=== PATIENT | male | born 1995 | race Caucasian/White ===

== ENCOUNTER 2016-11-24 20:08 | Emergency (ER) | payer SELFPAY ==
[~2016-11-24] VITALS: Ht 185.4 cm; Wt 158.8 kg
[~2016-11-24 20:08] MED LIST: ADDERALL10 MG PO; ADDERALL30 MG PO; AMOXICOT500 MG PO; FLEXERIL10 MG PO; KEFLEX 500MG.500 MG PO; MOTRIN600 MG PO; Meclizine25 MG PO; SEPTRA DS 800 M1 TAB PO; TAMIFLU 75MG CA75 MG PO; TENEX1 MG PO; TRIMOX500 MG PO; TYLENOL W/CODEI1 TA2 PO; VYVANSE70 MG PO; ZITHROMAX Z PA250 MG PO; ZITHROMAX500 MG PO; ZOFRAN ODT4 MG PO
[2016-11-24 20:36] LABS: UTC STREP SCREEN NOT DETECTED (NOTDETECTED)
[2016-11-24] MEDS ORDERED: BROMFED DM COU118 ML PO (20:50)
[2016-11-24] MEDS ORDERED: AMOXICILLIN500 M2 PO (20:50)
--- NOTE | 2016-11-24 20:52 | Urgent Treatment Center Report ---
History of Present Issue Date/Time Seen by Provider 11/24/162033 Visit Reason Pt arrived:Walked Presenting Problem:FLU LIKE SYMPTOMS Location if Accident: Onset of symptoms date/time:/ or onset unknown for:MEDICAL HX UNKNOWN Have you (or family members/close friends) recently traveled outside the [place]? N If Yes, where/when: Have you had exposure to infectious disease within the past month? TB? Other? Specify: Here with parents c/o tactile fever, bodyaches that have improved, cough that is occasionally productive, sore throat that has resolved, rhinorrhea, nasal congestion that started . Was seen at [facility] today, dx allergies, upset because no testing for flu or strep. Rx bromfed dm for nighttime and tessalon perles for during the day. Filled both but hasn't taken them. No known sick contacts. Not sure about flu vaccine. Source patient Exam Limitations no limitations ALLERGIES Coded Allergies: No Known Allergies (01/07/16) Home Medications Reported Medications Amphetamine Salt Combination (Adderall) 30 MG PO DAILY History Medical History General CAD? No Angina: No TN: No Hypertension? No Hyperlipidemia? No CHF? No DVT? No PE? No COPD? No Asthma? Yes Anemia? No GERD? No Gastric ulcers? No GI Bleed? No Hernia? No Thyroid Problems? No Hypothyroidism? No CVA? No Seizures? No Diabetes? No Insulin Dependent: No Insulin Pump: No Home FSBS? No Renal Insuffiency? No UTI? No Stones? No BPH? No GB Disease: No Nephritic Syndrome? No Asplenia? No Hepatitis? No Sickle Cell Disease? No Arthritis? No Migraines? No Cataracts? No Glaucoma? No MRSA? No HIV? No TB? No Anxiety? No Depression? No Cancer? No Immunization HX DT/Tetanus 5-10 YRS Surgical Hx Previous Surgery?Y ROOT CANAL RIGHT KNEE Social History Smoking Hx Smoker: Never Smoker Tobacco: No Alcohol Alcohol: No Review of Systems All Other Systems Reviewed and Negative Constitutional see HPI Eyes denies drainage ENT see HPI. denies: ear pain, ear discharge, throat swelling. Respiratory denies shortness of breath, denies wheezing Cardiovascular denies chest pain Gastrointestinal denies no symptoms reported Skin denies rash Psychiatric/Neurological headache Physical Exam Vital Signs Vital Signs Date Time Temp Pulse Resp B/P Pulse O2 O2 Flow FiO2 Ox Delivery Rate 11/24 2054 99.0 98 16 154/94 98 11/24 2025 99.0 98 16 154/94 98 General Appearance no apparent distress, obese Eye Exam - bilateral eye normal exam Ear, Nose, Throat left Tm dull pink, right TM normal, bilateral EACs normal, nasal congestion w/ clear rhinorrhea, cobblestoning w/ clear PND, no sinus pain Neck non-tender, supple Respiratory Status Yes: non productive cough. No: respiratory distress. Lung Sounds anterior: lungs clear. posterior: lungs clear. bilateral: lungs clear. Cardiovascular regular rate/rhythm, no murmur Neurologic alert Skin normal color, warm/dry Lymphatic no adenopathy (cervical) Medical Decision Making LABS/Meds/Orders Pt receiving controlled substance in ED? No Results/Orders Laboratory Tests 11/24/162030: Influenza Type A Ag NOT DETECTED, Influenza Type B Ag NOT DETECTED, Group A Strep Screen NOT DETECTED Orders Procedure Date/time Status UTC STREP SCREEN 11/24 2030 Complete UTC FLU A,B 11/24 2030 Complete Departure Departure Time of Disposition 2045 Disposition DC Home or Self Care(routine) Clinical Impression Primary Impression: Left otitis media Qualifiers: Otitis media type: unspecified Chronicity: unspecified Qualified Code: H66.92 - Otitis media, unspecified, left ear Secondary Impressions: Cough High blood pressure Qualifiers: Hypertension type: essential hypertension Qualified Code: I10 - Essential (primary) hypertension Condition STABLE Referrals Tre CABAN,Curtis (Family) Call tomorrow and make appt BURKE to discuss high blood pressure. follow up in 2-3 days if no better but immediately for new or worsening symptoms. Patient Instructions DI for Cough -- Adult, DI for Otitis Media (Middle Ear Infection)-Child Additional Instructions Do not take tessalon perles when you have a productive cough. Bromfed DM 4 times a day for cough and drainage. Start antibiotic in the morning for ear infection starting on left. Sleep elevated humidifier/vaporizer Discharge Counseling Counseled pt/family regarding diagnosis, test results, medications/RX, home care, follow up needs Prescriptions Current Visit Scripts Amoxicillin (Amoxicillin 500MG Tab) 500 MG PO TID #30 TAB TID x 10 days D-METHORPHAN HB/P-EPD HCL/BPM (Bromfed Dm Cough Syrup) 10 ML PO QIDP PRN cough #120 ML Ref 1 at 0044
[2016-11-24 20:55] VITALS: BP 154/94
== END 2016-11-24 20:55 | disposition home or self-care (01) ==
LOC: UTC 20:08
PROVIDERS: Nurse Practitioner Family
DX: H66.92 Otitis media, unspecified, left ear (principal); I10 Essential (primary) hypertension

== ENCOUNTER 2017-06-29 14:29 | Emergency (ER) | payer SELFPAY ==
[~2017-06-29] VITALS: Ht 185.4 cm; Wt 156.0 kg
[~2017-06-29 14:29] MED LIST changes: +AMOXICILLIN500 M2 PO; +BACTRIM DS 8001 TA1 PO; +BROMFED DM COU118 ML PO
[2017-06-29 14:47] VITALS: BP 143/98
[2017-06-29] MEDS ORDERED: ZOFRAN4 MG PO (14:49)
--- NOTE | 2017-06-29 14:50 | Urgent Treatment Center Report ---
History of Present Issue Date/Time Seen by Provider 06/29/17 1442 Visit Reason Pt arrived:Walked Presenting Problem:PT C/O VOMITING, WEAKNESS, NAUSEA SINCE THIS AM Location if Accident: Onset of symptoms date/time:/ or onset unknown for:MEDICAL HX UNKNOWN Have you (or family members/close friends) recently traveled outside the [place]? N If Yes, where/when: Have you had exposure to infectious disease within the past month? TB? Other? Specify: Source patient Exam Limitations no limitations Comment 21-year-old male presents for nausea, epigastric pain and vomiting 3 since 3 AM. Patient states his nine-month old daughter just recovered from a stomach virus. Patient denies fever or diarrhea ALLERGIES Coded Allergies: No Known Allergies (01/07/16) Home Medications Reported Medications No Known Home Medications History Medical History General CAD? No Angina: No DE: No Hypertension? No Hyperlipidemia? No CHF? No DVT? No PE? No COPD? No Asthma? Yes Anemia? No GERD? No Gastric ulcers? No GI Bleed? No Hernia? No Thyroid Problems? No Hypothyroidism? No CVA? No Seizures? No Diabetes? No Insulin Dependent: No Insulin Pump: No Home FSBS? No Renal Insuffiency? No UTI? No Stones? No BPH? No GB Disease: No Nephritic Syndrome? No Asplenia? No Hepatitis? No Sickle Cell Disease? No Arthritis? No Migraines? No Cataracts? No Glaucoma? No MRSA? No HIV? No TB? No Anxiety? No Depression? No Cancer? No Immunization HX DT/Tetanus 5-10 YRS Surgical Hx Previous Surgery?Y ROOT CANAL RIGHT KNEE Social History Smoking Hx Smoker: Never Smoker Tobacco: No Alcohol Alcohol: No Review of Systems All Other Systems Reviewed and Negative Gastrointestinal see HPI, abdominal pain, vomiting Physical Exam Vital Signs Vital Signs Date Time Temp Pulse Resp B/P Pulse O2 O2 Flow FiO2 Ox Delivery Rate 06/29 1447 98.6 81 16 143/98 98 06/29 1438 98.6 81 16 143/98 98 - WBC >12,000 or <4,000 or 10% bands? 2 or more SIRS Criteria Met? B/P:143/98 MAP:113 Creatinine >2.0? UA output<0.5ml/kg/hr for 2 hrs? Platelet count >100,000? Lactate >2.0mmol/1? INR >1.2 or PTT > than 60 sec? Evidence of Organ Dysfunction? Provider documented clinical suspician of infection? Sepsis Criteria Count: 0 Sepsis Risk: General Appearance normal appearance, no apparent distress Eye Exam - bilateral eye normal exam, bilateral eye PERRL, bilateral eye EOMI Ear, Nose, Throat hearing grossly normal, normal ENT inspection, normal pharynx Neck normal inspection, full range of motion Respiratory Status Yes: trachea midline, chest symmetrical, non tender chest. No: respiratory distress. Lung Sounds bilateral: normal breath sounds, lungs clear. Cardiovascular normal exam, regular rate/rhythm, no peripheral edema Gastrointestinal normal bowel sounds, normal exam, non tender, soft, no guarding , no rebound, tenderness (epigastric) Back normal inspection, no CVA tenderness, no vertebral tenderness, bowel/ bladder continent Neurologic alert, normal exam, oriented x 3 Medical Decision Making LABS/Meds/Orders Pt receiving controlled substance in ED? No Departure Departure Time of Disposition 1446 Disposition DC Home or Self Care(routine) Clinical Impression Primary Impression: Vomiting Qualifiers: Vomiting type: unspecified Vomiting Intractability: non-intractable Nausea presence: with nausea Qualified Code: R11.2 - Nausea with vomiting, unspecified Condition STABLE Referrals Curtis Toledo MD (Family): Tomorrow-Call Office Patient Instructions DI for Vomiting -- Adult Additional Instructions bran diet, advance as tolerated Increase fluids, rest Follow-up with PCP this week if no improvement If symptoms worsen or do not improve return or be seen in the ER Discharge Counseling Counseled pt/family regarding diagnosis, medications/RX, home care, follow up needs Prescriptions Current Visit Scripts ONDANSETRON HCL (Zofran 4MG Tab) 4 MG PO Q8HP PRN NAUSEA AND VOMITING 3 Days at 6706
--- OUTSIDE RECORDS SUMMARY | 2017-07-04 02:41 | External Medical Summary Rpt | CCD ---
Author Author , MARY ELLEN HYDE Address Unknown Phone mary Care Team Providers Care Cvicu Rn Name Role Phone PETE NAIR MD, Unavailable Unavailable PETE NAIR MD [facility] Unavailable Unavailable [place], [facility] [place] Kirsten Mascorro MD, Unavailable Unavailable Kirsten Brown MD, Unavailable Unavailable Yohan Brown MD [facility] Unavailable Unavailable [id number] # [id number], [facility] [id number] # [id number] [facility] # Unavailable Unavailable [id number], [facility] # [id number] Purpose Continuity of Care Document - 11-22-2009 through 2016 Problems Code Diagnosis DOS Provider Status 842.00 842.00 07-08-2013 [place] SPRAIN OF [facility] WRIST NOS Hospital 314.01 314.01 ATTN 05-24-2013 Vitor DEFICIT W [facility] HYPERACT Hospital 493.90 493.90 05-24-2013 [place] ASTHMA, [facility] UNSPECIFIED Hospital 724.2 724.2 05-24-2013 [facility] 815.00 815.00 FX 03-26-2013 [place] METACARPAL [facility] NOS-CLOSED Hospital E849.8 E849.8 03-23-2013 Vitor ACCIDENT IN [facility] E917.4 E917.4 STAT 03-23-2013 [place] OB W/O SUB [facility] FALL [facility] H81.10 BENIGN PAROXYSMAL VERTIGO, UNSPECIFIED EAR J06.9 ACUTE UPPER RESPIRATORY INFECTION, UNSPECIFIED L03.90 CELLULITIS, UNSPECIFIED M25.569 PAIN IN UNSPECIFIED KNEE R00.2 PALPITATION S R07.9 CHEST PAIN, UNSPECIFIED R55 SYNCOPE AND COLLAPSE S91.209A UNSP OPEN WOUND OF UNSP TOE(S) W DAMAGE TO NAIL, INIT ENCNTR S96.919A STRAIN OF UNSP MSL/TND AT ANK/FT LEVEL, UNSP FOOT, INIT Allergies, Adverse Reactions, Alerts Type Allergy to substance Drug Allergy Adverse Reaction to Substance Substance Reaction Severity NO KNOWN ALLERGIES Unknown Unknown No Known Allergies - Unknown Mild Nka Clinical Alert Notifications Alert Asthma: no influenza vaccine in the last 365 days Medications Na ND Rx Da Fi Fi Am Da Di Ph RX Ph St me C No te ll ll ou ys ag ar # ys at rm s nt no ma ic us Or Da si cy ia de te s n re d AC 51 07 0 No ET 07 -0 AM 90 2- Lo IN 16 20 ng OP 19 13 er HE 9H N Ac W/ ti CO ve DE IN E #3 TA K DE 00 10 10 0 [address] Ac XT 55 -0 -0 .0 L- 20 EP ti RO 50 7- 7- 00 MA 64 HE ve AM 97 20 20 RT 3 NS P- 20 11 11 AM 2 PH DO PH AR N ET MA R AM CY IN # 10 10 05 MG 91 TA B VY 59 10 10 0 [address] Ac VA 41 -0 -0 .0 L- 20 EP ti NS 70 4- 4- 00 MA 63 HE ve E 10 20 20 RT 1 NS 70 71 11 11 0 PH DO MG AR N MA R CA CY PS # UL E 10 05 91 VY 59 08 09 0 [address] Ac VA 41 -3 -0 .0 L- 20 EP ti NS 70 1- 2- 00 MA 46 HE ve E 10 20 20 RT 9 NS 70 71 11 11 0 PH DO MG AR N MA R CA CY PS # UL E 10 05 91 AZ 60 08 08 0 4. 4 WA 71 CO Ac IT 50 -1 -1 00 L- 31 OP ti HR 52 6- 7- 0 MA 21 ER ve OM 58 20 20 RT 6 YC 10 11 11 RADHA IN 3 PH HN AR G 25 MA 0 CY MG # TA 10 BL 05 ET 91 VY 59 07 07 0 [address] Ac VA 41 -0 -2 .0 L- 20 EP ti NS 70 4- 2- 00 MA 26 HE ve E 10 20 20 RT 4 NS 70 71 11 11 0 PH DO MG AR N MA R CA CY PS # UL E 10 05 91 VY 59 06 06 0 [address] Ac VA 41 -0 -0 .0 L- 20 EP ti NS 70 4- 5- 00 MA 03 HE ve E 10 20 20 RT 8 NS 70 71 11 11 0 PH DO MG AR N MA R CA CY PS # UL E 10 DE 00 06 06 0 [address] Ac XT 55 -0 -0 .0 L- 20 EP ti RO 50 4- 5- 00 MA 03 HE ve AM 97 20 20 RT 9 NS P- 20 11 11 AM 2 PH DO PH AR N ET MA R AM CY IN # 10 10 05 MG 91 TA B VY 59 05 05 0 [address] Ac VA 41 -0 -0 .0 L- 19 EP ti NS 70 2- 2- 00 MA 86 HE ve E 10 20 20 RT 3 NS 70 71 11 11 0 PH DO MG AR N MA R CA CY PS # UL E 10 05 91 IB 68 04 04 0 [address] Ac UP 64 -2 -2 .0 L- 16 EP ti RO 50 2- 2- 00 MA 34 HE ve FE 22 20 20 RT 0 NS N 15 11 11 60 9 PH DO 0 AR N MG MA R CY TA # BL ET 10 VY 59 03 03 0 [address] Ac VA 41 -2 -2 .0 L- 19 EP ti NS 70 9- 9- 00 MA 67 HE ve E 10 20 20 RT 9 NS 70 71 11 11 0 PH DO MG AR N MA R CA CY PS # UL E 10 DE 00 03 03 0 [address] Ac XT 55 -2 -2 .0 L- 19 EP ti RO 50 8- 8- 00 MA 66 HE ve AM 97 20 20 RT 2 NS P- 20 11 11 AM 2 PH DO PH AR N ET MA R AM CY IN # 10 10 05 MG 91 TA B VY 59 01 02 0 [address] Ac VA 41 -2 -0 .0 L- 19 EP ti NS 70 1- 9- 00 MA 31 HE ve E 10 20 20 RT 7 NS 70 71 11 11 0 PH DO MG AR N MA R CA CY PS # UL E 10 05 91 RA 53 02 02 0 [address] Ac NI 74 -0 -0 .0 L- 04 EP ti TI 60 1- 1- 00 MA 96 HE ve DI 25 20 20 RT 1 NS NE 36 11 11 0 PH DO 15 AR N 0 MA R MG CY # TA BL 10 ET 05 91 65 01 01 5 [address] Ac AN 16 -2 -3 .0 L- 04 EP ti FA 20 5- 0- 00 MA 65 HE ve CI 71 20 20 RT 1 NS NE 11 11 11 1 0 PH DO AR N MG MA R CY TA # BL ET 10 05 91 DE 00 01 01 0 [address] Ac XT 55 -2 -2 .0 L- 19 EP ti RO 50 1- 1- 00 MA 31 HE ve AM 97 20 20 RT 8 NS P- 20 11 11 AM 2 PH DO PH AR N ET MA R AM CY IN # 10 10 05 MG 91 TA B VY 59 01 01 0 [address] Ac VA 41 -1 -1 .0 L- 19 EP ti NS 70 1- 2- 00 MA 26 HE ve E 10 20 20 RT 4 NS 70 71 11 11 0 PH DO MG AR N MA R CA CY PS # UL E 10 05 91 VY 59 12 12 0 [address] Ac VA 41 -0 -[address] 31 EP ti NS 70 8- 8- 00 SI 02 HE ve E 10 20 20 DE NS 70 71 10 10 0 PH DO MG AR N MA R CA CY PS UL OF E CY NT HI AN A DE 64 12 12 [address] Ac XT 72 -0 -[address] 31 EP ti RO 00 8- 8- 00 SI 03 HE ve AM 13 20 20 DE NS P- 21 10 10 AM 0 PH DO PH AR N ET MA R AM CY IN OF 10 CY MG NT HI TA AN B A DE 00 11 11 0 [address] Ac XT 55 -0 -0 .0 L- 18 EP ti RO 50 8- 8- 00 MA 93 HE ve AM 97 20 20 RT 8 NS P- 20 10 10 AM 2 PH DO PH AR N ET MA R AM CY IN # 10 10 05 MG 91 TA B VY 59 11 11 0 [address] Ac VA 41 -0 -0 .0 L- 18 EP ti NS 70 8- 8- 00 MA 93 HE ve E 10 20 20 RT 9 NS 70 71 10 10 0 PH DO MG AR N MA R CA CY PS # UL E 10 05 91 65 11 11 5 [address] Ac AN 16 -0 -0 .0 L- 93 EP ti FA 20 8- 8- 00 MA 45 HE ve CI 71 20 20 RT 5 NS NE 11 10 10 1 0 PH DO AR N MG MA R CY TA # BL ET 10 05 91 DE 00 10 10 0 15 30 WA 22 No Ac XT 55 -0 -0 .0 L- 18 t ti RO 50 7- 8- 00 MA 77 Av ve AM 97 20 20 RT 6 ai P- 20 10 10 la AM 2 PH bl PH AR e ET MA AM CY IN # 10 10 05 MG 91 TA B VY 59 10 10 0 30 30 WA 22 No Ac VA 41 -0 -0 .0 L- 18 t ti NS 70 7- 7- 00 MA 77 Av ve E 10 20 20 RT 5 ai 70 71 10 10 la 0 PH bl MG AR e MA CA CY PS # UL E 10 05 91 65 10 10 1 30 30 WA 70 No Ac AN 16 -0 -0 .0 L- 89 t ti FA 20 7- 7- 00 MA 45 Av ve CI 71 20 20 RT 0 ai NE 11 10 10 la 1 0 PH bl AR e MG MA CY TA # BL ET 10 05 91 VY 59 09 09 30 30 RI 84 PR Ac VA 41 -0 -0 .0 TE 88 LL ti NS 70 7- 7- 00 67 ER ve E 10 20 20 AI 70 71 10 10 D CA 0 PH RO MG AR L MA J CA CY PS UL 03 E 93 8 # 03 93 65 09 09 0 30 30 WA 70 PR Ac AN 16 -0 -0 .0 L- 85 LL ti FA 20 7- 7- 00 MA 22 ER ve CI 71 20 20 RT 7 NE 11 10 10 CA 1 0 PH RO AR L MG MA J CY TA # BL ET 10 05 91 VY 59 07 08 0 30 30 WA 22 YO Ac VA 41 -0 -0 .0 L- 18 UN ti NS 70 8- 6- 00 MA 25 G ve E 10 20 20 RT 2 RO 70 71 10 10 SL 0 PH YN MG AR MA CA CY PS # UL E 10 05 91 DE 00 07 07 0 30 30 WA 22 YO Ac XT 55 -0 -0 .0 L- 18 UN ti RO 50 8- 8- 00 MA 25 G ve AM 97 20 20 RT 1 RO P- 20 10 10 SL AM 2 PH YN PH AR ET MA AM CY IN # 10 10 05 MG 91 TA B VY 59 07 07 0 30 30 WA 22 YO Ac VA 41 -0 -0 .0 L- 18 UN ti NS 70 8- 8- 00 MA 25 G ve E 10 20 20 RT 3 RO 70 71 10 10 SL 0 PH YN MG AR MA CA CY PS # UL E 10 05 91 65 07 07 1 30 30 WA 70 YO Ac AN 16 -0 -0 .0 L- 77 UN ti FA 20 8- 8- 00 MA 75 G ve CI 71 20 20 RT 9 RO NE 11 10 10 SL 1 0 PH YN AR MG MA CY TA # BL ET 10 05 91 IB 68 06 06 0 15 5 WA 70 GA Ac UP 64 -2 -2 .0 L- 75 IN ti RO 50 1- 2- 00 MA 67 EY ve FE 22 20 20 RT 5 N 15 10 10 PR 60 9 PH CH 0 AR AE MG MA L CY S TA # BL ET 10 05 91 VY 59 06 06 30 30 RI 83 No Ac VA 41 -1 -1 .0 TE 76 t ti NS 70 0- 1- 00 17 Av ve E 10 20 20 AI ai 70 71 10 10 D la 0 PH bl MG AR e MA CA CY PS UL 03 E 93 8 # 03 93 VY 59 04 05 0 30 30 WA 22 No Ac VA 41 -1 -1 .0 L- 17 t ti NS 70 5- 0- 00 MA 88 Av ve E 10 20 20 RT 9 ai 70 71 10 10 la 0 PH bl MG AR e MA CA CY PS # UL E 10 05 91 AZ 00 05 05 0 6[address] Ac IT 78 -0 -0 00 L- 69 EP ti HR 11 7- 7- 0 MA 72 HE ve OM 49 20 20 RT 8 NS YC 66 10 10 IN 8 PH DO AR N 25 MA R 0 CY MG # TA 10 BL 05 ET 91 65 04 05 1 30 30 WA 70 No Ac AN 16 -1 -0 .0 L- 69 t ti FA 20 5- 6- 00 MA 63 Av ve CI 71 20 20 RT 1 ai NE 11 10 10 la 1 0 PH bl AR e MG MA CY TA # BL ET 10 05 91 AM 00 04 04 0 [address] Ac OX 78 -3 -3 .0 L- 68 EP ti IC 12 0- 0- 00 MA 78 HE ve IL 61 20 20 RT 8 NS LI 30 10 10 N 5 PH DO 50 AR N 0 MA R MG CY # CA PS 10 UL 05 E 91 60 04 04 0 [address] Ac 25 -3 -3 0. L- 68 EP ti 80 0- 0- 00 MA 80 HE ve 23 20 20 0 RT 1 NS 91 10 10 6 PH DO AR N MA R CY # 10 05 91 MU 63 04 04 0 [address] Ac CI 82 -3 -3 .0 L- 15 EP ti NE 40 0- 0- 00 MA 92 HE ve X 00 20 20 RT 5 NS ER 83 10 10 4 PH DO 60 AR N 0 MA R MG CY # TA BL 10 ET 05 91 VY 59 03 04 30 30 RI 82 No Ac VA 41 -0 -0 .0 TE 88 t ti NS 70 4- 7- 00 88 Av ve E 10 20 20 AI ai 70 71 10 10 D la 0 PH bl MG AR e MA CA CY PS UL 03 E 93 8 # 03 93 AM 00 03 03 0 15 5 EA 16 GA Ac OX 78 -1 -[address] 75 IN ti IC 12 2- 2- 00 SI 52 EY ve IL 61 20 20 DE LI 30 10 10 PR N 5 PH CH 50 AR AE 0 MA L MG CY S CA OF PS UL CY E NT HI AN A VY 59 03 03 0 30 30 WA 22 No Ac VA 41 -0 -0 .0 L- 17 t ti NS 70 4- 4- 00 MA 56 Av ve E 10 20 20 RT 9 ai 70 71 10 10 la 0 PH bl MG AR e MA CA CY PS # UL E 10 05 91 65 03 03 1 30 30 WA 70 No Ac AN 16 -0 -0 .0 L- 61 t ti FA 20 4- 4- 00 MA 07 Av ve CI 71 20 20 RT 1 ai NE 11 10 10 la 1 0 PH bl AR e MG MA CY TA # BL ET 10 05 91 Vital Signs 07-08-2013 19:26 Name Value Interpretat Reference Comment ion Range Body 98 [degF] Temperature BP 70 mm[Hg] Diastolic BP Systolic 122 mm[Hg] Heart 82 /min Rate/Pulse O2% 98 % Respiratory 18 /min Rate 07-08-2013 19:24 Name Value Interpretat Reference Comment ion Range BP 70 mm[Hg] Diastolic BP Systolic 122 mm[Hg] Heart 82 /min Rate/Pulse O2% 98 % Respiratory 18 /min Rate 05-24-2013 13:16 Name Value Interpretat Reference Comment ion Range Body 98.3 [degF] Temperature BP 77 mm[Hg] Diastolic BP Systolic 124 mm[Hg] Heart 82 /min Rate/Pulse O2% 100 % Respiratory 18 /min Rate 05-24-2013 11:56 Name Value Interpretat Reference Comment ion Range BP 78 mm[Hg] Diastolic BP Systolic 138 mm[Hg] Heart 74 /min Rate/Pulse O2% 98 % Respiratory 20 /min Rate 03-28-2013 18:33 Name Value Interpretat Reference Comment ion Range BP 80 mm[Hg] Diastolic BP Systolic 138 mm[Hg] Heart 76 /min Rate/Pulse O2% 98 % Respiratory 17 /min Rate 03-26-2013 16:04 Name Value Interpretat Reference Comment ion Range Body 98.3 [degF] Temperature BP 85 mm[Hg] Diastolic BP Systolic 135 mm[Hg] Heart 85 /min Rate/Pulse O2% 99 % Respiratory 20 /min Rate 03-26-2013 15:49 Name Value Interpretat Reference Comment ion Range BP 85 mm[Hg] Diastolic BP Systolic 135 mm[Hg] Heart 85 /min Rate/Pulse O2% 99 % Respiratory 20 /min Rate 03-23-2013 00:09 Name Value Interpretat Reference Comment ion Range BP 82 mm[Hg] Diastolic BP Systolic 120 mm[Hg] Heart 65 /min Rate/Pulse O2% 98 % Respiratory 20 /min Rate 03-23-2013 00:04 Name Value Interpretat Reference Comment ion Range BP 82 mm[Hg] Diastolic BP Systolic 120 mm[Hg] Heart 107 /min Rate/Pulse O2% 93 % Respiratory 20 /min Rate Results Labs Lab Lab Date Result Refere Interp Status Commen Order Detail nces retati t Range on URINALYSIS/COMPLETE (05-24-2013 13:00) URINE YELLOW YELLOW complet COLOR 013 ed 13:00 URINE CLEAR CLEAR complet APPEARA 013 ed NCE 13:00 URINE NEGATIV NEG complet GLUCOSE 013 E ed - 13:00 DIPSTIC K URINE NEGATIV NEG complet BILIRUB 013 E ed IN - 13:00 DIPSTIC K URINE NEGATIV NEG complet KETONE 013 E mg/dL ed 13:00 URINE 1.020 1.005-1 complet SPECIFI 013 UNK .030 ed C 13:00 GRAVITY URINE NEGATIV NEG complet BLOOD 013 E ed 13:00 URINE 7.0 UNK 5.0-8.5 complet PH 013 ed 13:00 URINE NEGATIV NEG complet PROTEIN 013 E mg/dL ed - 13:00 DIPSTIC K URINE 0.2 NEG complet UROBILI 013 E.U./dL ed NOGEN - 13:00 DIPSTIC K URINE NEGATIV NEG complet NITRATE 013 E ed - 13:00 DIPSTIC K URINE NEGATIV NEG complet LEUK 013 E ed ESTERAS 13:00 E URINE 3-5 0 complet RBC 013 rbc/hpf ed 13:00 URINE TRACE O complet BACTERI 013 ed A 13:00 URINE 1+ NONE complet MUCUS 013 ed 13:00 Procedures Procedure DOS Code Location Performer Comment APPLICATI 93.54 Yohan Marques ON OF Stephanie CABAN SPLINT Encounters Encounter Start End Date Code Location Performer Type Date Emergency YARITZA NAIR MD (ER) 3 18:50 3 19:26 [facility] Emergency YARITZA NAIR MD (ER) 3 11:08 3 13:20 [facility] Emergency YARITZA Escobar MD (ER) 3 18:29 3 18:34 [facility] Emergency YARITZA Mascorro MD (ER) 3 15:30 3 16:06 [facility] Emergency YARITZA Brown MD (ER) 3 23:17 3 00:13 [facility]
--- OUTSIDE RECORDS SUMMARY | 2017-07-04 02:41 | External Medical Summary Rpt | CCD ---
Author Author , MARY ELLEN HYDE Address Unknown Phone mary Care Team Providers Care Display Decorator Name Role Phone PETE NAIR MD, Unavailable Unavailable PETE NAIR MD [facility] Unavailable Unavailable [place], [facility] [place] Kirsten Mascorro MD, Unavailable Unavailable Kirsten Brown MD, Unavailable Unavailable Yohan Brown MD [facility] Unavailable Unavailable [id number] # [id number], [facility] [id number] # [id number] [facility] # Unavailable Unavailable [id number], [facility] # [id number] Purpose Continuity of Care Document - 11-22-2009 through 2016 Problems Code Diagnosis DOS Provider Status 842.00 842.00 07-08-2013 [place] SPRAIN OF [facility] WRIST NOS Hospital 314.01 314.01 ATTN 05-24-2013 [place] DEFICIT W [facility] HYPERACT Hospital 493.90 493.90 05-24-2013 [place] ASTHMA, [facility] UNSPECIFIED Hospital 724.2 724.2 05-24-2013 [facility] 815.00 815.00 FX 03-26-2013 [place] METACARPAL [facility] NOS-CLOSED Hospital E849.8 E849.8 03-23-2013 [place] ACCIDENT IN [facility] E917.4 E917.4 STAT 03-23-2013 [place] OB W/O SUB [facility] FALL [facility] H81.10 BENIGN PAROXYSMAL VERTIGO, UNSPECIFIED [...] VY 59 07 07 [address] Ac VA 41 -0 -2 .0 L- 20 EP ti NS 70 4- 2- 00 MA 26 HE ve E 10 20 20 RT 4 NS 70 71 11 11 0 PH DO MG AR N MA R CA CY PS # UL E 10 05 91 VY 59 06 06 0 [address] Ac VA 41 -0 -0 [...] 59 09 09 30 30 RI 84 NC Ac VA 41 -0 -0 .0 TE 88 LL ti NS 70 7- 7- 00 67 ER ve E 10 20 20 AI 70 71 10 10 D CA 0 PH RO MG AR L MA J CA CY PS UL 03 E 93 8 # 03 93 65 09 09 0 30 30 WA 70 NC Ac AN 16 -0 -0 .0 L- [...] 20 RT 5 N 15 10 10 NC 60 9 PH CH 0 AR AE [...] 20 20 DE LI 30 10 10 NC N 5 PH CH 50 AR AE [...] NAIR MD (ER) 3 18:50 3 19:26 [facility] Emergency YARITZA NAIR MD (ER) 3 11:08 3 13:20 [facility] Emergency YARITZA Escobar MD (ER) 3 18:29 3 18:34 [facility] Emergency YARITZA Mascorro MD (ER) 3 15:30 3 16:06 [facility] Emergency YARITZA Brown MD (ER) 3 23:17 3 00:13 [facility]
--- OUTSIDE RECORDS SUMMARY | 2017-07-04 02:42 | External Medical Summary Rpt | CCD ---
Demographics Preferred Language Gabonese Marital Status Unknown Yazdanism Affiliation Unknown Race Unknown Ethnic Group Unknown Author Author , MARY ELLEN HYDE Address Unknown Phone [email or web address] Care Team Providers Care Sales Representative Leather Goods Name Role Phone [facility] Unavailable Unavailable MARIA LUZ, [facility] [place] [facility] Unavailable Unavailable [id number] # [id number], [facility] [id number] # 0393 [facility] # Unavailable Unavailable [id number], [facility] # [id number] Purpose Continuity of Care Document - 11-22-2009 through 2016 Medications Na ND Rx Da Fi Fi Am Da Di Ph RX Ph St me C No te ll ll ou ys ag ar # ys at rm s nt no ma ic us Or Da si cy ia de te s n re d DE 00 10 10 0 30 30 [...] 07 07 0 [address] Ac VA 41 -0 -2 .0 L- 20 EP ti NS 70 4- 2- 00 MA 26 HE ve E 10 20 20 RT 4 NS 70 71 11 11 0 PH DO MG AR N MA R CA CY PS # UL E 10 05 91 VY 59 06 06 0 [address] Ac VA 41 -0 -0 .0 L- 20 EP ti NS 70 4- 5- 00 MA 03 HE ve E 10 20 20 RT 8 NS 70 71 11 11 0 PH DO MG AR N MA R CA CY PS # UL E 10 05 DE 00 06 06 0 30 30 [...] BL ET 10 05 91 VY 59 03 03 0 [address] Ac VA 41 -2 -2 .0 L- 19 EP ti NS 70 9- 9- 00 MA 67 HE ve E 10 20 20 RT 9 NS 70 71 11 11 0 PH DO MG AR N MA R CA CY PS # UL E 10 05 DE 00 03 03 0 30 30 [...] CY # TA BL 10 ET 05 65 01 01 5 [address] Ac AN 16 -2 -3 .0 L- 04 EP ti FA 20 5- 0- 00 MA 65 HE ve CI 71 20 20 RT 1 NS NE 11 11 11 1 0 PH DO AR N MG MA R CY TA # BL ET 10 DE 00 01 01 0 30 30 [...] CA CY PS # UL E 10 VY 59 12 12 0 30 30 [...] MG NT HI TA AN B A 65 11 11 5 [address] Ac AN 16 -0 -0 .0 L- 93 EP ti FA 20 8- 8- 00 MA 45 HE ve CI 71 20 20 RT 5 NS NE 11 10 10 1 0 PH DO AR N MG MA R CY TA # BL ET 10 DE 00 11 11 0 30 30 [...] UL E 10 05 91 DE 00 10 10 [...] 59 09 09 30 30 RI 84 [place] Ac VA 41 -0 -0 .0 TE 88 LL ti NS 70 7- 7- 00 67 ER ve E 10 20 20 AI 70 71 10 10 D CA 0 PH RO MG AR L MA J CA CY PS UL 03 E 93 8 # 03 93 65 09 09 0 30 30 WA 70 [place] Ac AN 16 -0 -0 .0 L- [...] 20 RT 5 N 15 10 10 [place] 60 9 PH CH 0 AR AE [...] 20 20 DE LI 30 10 10 [place] N 5 PH CH 50 AR AE [...]
--- OUTSIDE RECORDS SUMMARY | 2017-07-04 02:42 | External Medical Summary Rpt | CCD ---
Demographics Preferred Language Cambodian Marital Status Unknown Restorationism Affiliation Unknown Race Unknown Ethnic Group Unknown Author Author , MARY ELLEN HYDE Address Unknown Phone [email or web address] Care Team Providers Care Scroll Shear Operator Name Role Phone [facility] Unavailable Unavailable MARIA LUZ, [facility] [place] [facility] Unavailable Unavailable [id number] # [phone], [facility] [id number] # 0393 [facility] # Unavailable Unavailable [id number], [facility] # [id number] Purpose Continuity of Care Document - 11-22-2009 [...] 59 09 09 30 30 RI 84 [place] Ac VA 41 -0 -0 .0 TE 88 LL ti NS 70 7- 7- 00 67 ER ve E 10 20 20 AI 70 71 10 10 D CA 0 PH RO MG AR L MA J CA CY PS UL 03 E 93 8 # 03 93 65 09 09 0 30 30 WA 70 [place] Ac AN 16 -0 -0 .0 L- [...] 20 RT 5 N 15 10 10 [place] 60 9 PH CH 0 AR AE [...] 20 20 DE LI 30 10 10 [place] N 5 PH CH 50 AR AE [...]
--- OUTSIDE RECORDS SUMMARY | 2017-07-04 02:43 | External Medical Summary Rpt | CCD ---
Author Author , MARY ELLEN HYDE Address Unknown Phone [email or web address] Immunization Name Date Rout CVX Reac Dose Comm Prov Is Faci e tion ent ider Refu lity Give sed n DTaP 11-1 107 999 Hist H149 No H149 , UF 6-19 oric 99 al Info rmat ion - Sour ce Unsp ecif ied MMR 11-1 3 999 Hist H149 No H149 6-19 oric 99 al Info rmat ion - Sour ce Unsp ecif ied Corey 11-1 2 999 Hist H149 No H149 o-OP 6-19 oric V 99 al Info rmat ion - Sour ce Unsp ecif ied DTP- 07-1 22 999 Hist H149 No H149 Hib 8-19 oric 97 al Info rmat ion - Sour ce Unsp ecif ied MMR 07-1 3 999 Hist H149 No H149 8-19 oric 97 al Info rmat ion - Sour ce Unsp ecif ied
--- OUTSIDE RECORDS SUMMARY | 2017-07-04 02:43 | External Medical Summary Rpt ---
Author Author MARY ELLEN Zuñiga, MARY ELLEN Production Organization [facility]ARY [facility]LL[facility] [employer] Address Unknown Phone Unavailable Results Natriutietic peptide B [Mass/volume] in Serum or Plasma Observa Value Referen Units Interpr Notes Date tion ce etation Range Natriutie 0 - 100 pg/mL Normal No Sep 5 tic informati 2016 4:15 peptide B on in PM source [Mass/vol data ume] in Serum or Plasma Fibrin D-dimer FEU [Mass/volume] in Platelet poor plasma Observa Value Referen Units Interpr Notes Date tion ce etation Range Fibrin 0 - 400 ng/mL Normal The May 26 D-dimer D-Dimer 2016 4:15 FEU values PM [Mass/vol are ume] in presented Platelet in units poor of plasma mass(ng/m L) ofD-Dimer units(DDU ).This test has been FDA approved as an aid in the assessmen tand evaluatio n of suspected DIC, and thromboem bolic eventsinc luding PE and DVT. However, it does not have approvalf or cut-off values for the exclusion of these condition s. Amylase [Enzymatic activity/volume] in Serum or Plasma Observa Value Referen Units Interpr Notes Date tion ce etation Range Amylase 25 - 115 U/L Normal No Sep 5 [Enzymati informati 2016 4:15 c on in PM activity/ source volume] data in Serum or Plasma Lipase [Enzymatic activity/volume] in Serum or Plasma Observa Value Referen Units Interpr Notes Date tion ce etation Range Lipase 73 - 393 U/L Normal No Sep 5 [Enzymati informati 2016 4:15 c on in PM activity/ source volume] data in Serum or Plasma CBC W Auto Differential panel in Blood Observa Value Referen Units Interpr Notes Date tion ce etation Range Basophils 0 - 0.2 K/MM3 Normal No Sep 5 informati 2016 4:15 [#/volume on in PM ] in source Blood by data Automated count Basophils 0.1 - 2.0 % Normal No Sep 5 /100 informati 2016 4:15 leukocyte on in PM s in source Blood by data Automated count Eosinophi 0.0 - 0.4 K/mm3 Normal No Sep 5 ls informati 2016 4:15 [#/volume on in PM ] in source Blood by data Automated count Eosinophi 0.1 - % Normal No Sep 5 ls/100 12.0 informati 2016 4:15 leukocyte on in PM s in source Blood by data Automated count Granulocy 1.3 - 8.0 K/mm3 Normal No Sep 5 mya informati 2016 4:15 [#/volume on in PM ] in source Blood by data Automated count Granulocy 37.0 - % Normal No Sep 5 mya/100 80.0 informati 2016 4:15 leukocyte on in PM s in source Blood by data Automated count Hematocri 42.0 - % Normal No Sep 5 t [Volume 52.0 informati 2016 4:15 on in PM Fraction] source of Blood data Hemoglobi 14.1 - g/dL Normal No Sep 5 n 18.0 informati 2016 4:15 [Mass/vol on in PM ume] in source Blood data Lymphocyt 0.7 - 4.5 K/mm3 Normal No Sep 5 es informati 2016 4:15 [#/volume on in PM ] in source Unspecifi data ed specimen by Automated count Lymphocyt 10 - 50 % Normal No Sep 5 es informati 2016 4:15 [#/volume on in PM ] in source Unspecifi data ed specimen by Automated count Erythrocy 27 - 31.2 pg Normal No Sep 5 te mean informati 2016 4:15 corpuscul on in PM ar source hemoglobi data n [Entitic mass] Erythrocy 31.8 - g/dl Normal No Sep 5 te mean 35.4 informati 2016 4:15 corpuscul on in PM ar source hemoglobi data n concentra tion [Mass/vol ume] by Automated count Erythrocy 82.2 - fl Normal No Sep 5 te mean 97.8 informati 2016 4:15 corpuscul on in PM ar volume source [Entitic data volume] by Automated count Monocytes 0.1 - 1.0 K/mm3 Normal No Sep 5 informati 2016 4:15 [#/volume on in PM ] in source Blood by data Automated count Monocytes 1.7 - 9.3 % Normal No Sep 5 /100 informati 2016 4:15 leukocyte on in PM s in source Blood by data Automated count Platelet 7.4 - fl Normal No Sep 5 mean 10.4 informati 2016 4:15 volume on in PM [Entitic source volume] data in Blood by Automated count Platelets 142 - 424 K/mm3 Normal No Sep 5 inform2016 4:15 [#/volume on in PM ] in source Blood data Erythrocy 4.6 - 6.2 M/mm3 Normal No Sep 5 mya informati 2016 4:15 [#/volume on in PM ] in source Amniotic data fluid Erythrocy 11.5 - % Normal No Sep 5 te 17.5 informati 2016 4:15 distribut on in PM ion width source [Entitic data volume] by Automated count Leukocyte 4.8 - K/MM3 High No Sep 5 s 10.8 informati 2016 4:15 [#/volume on in PM ] in source Blood data CBC W Auto Differential panel in Blood Observa Value Referen Units Interpr Notes Date tion ce etation Range Basophils 0 - 0.2 K/MM3 Normal No May 20 informati 2016 1:18 [#/volume on in PM ] in source Blood by data Automated count Basophils 0.1 - 2.0 % Normal No May 20 /100 informati 2016 1:18 leukocyte on in PM s in source Blood by data Automated count Eosinophi 0.0 - 0.4 K/mm3 Normal No May 20 ls informati 2016 1:18 [#/volume on in PM ] in source Blood by data Automated count Eosinophi 0.1 - % Normal No May 20 ls/100 12.0 informati 2016 1:18 leukocyte on in PM s in source Blood by data Automated count Granulocy 1.3 - 8.0 K/mm3 Normal No May 20 mya informati 2016 1:18 [#/volume on in PM ] in source Blood by data Automated count Granulocy 37.0 - % Normal No May 20 mya/100 80.0 informati 2016 1:18 leukocyte on in PM s in source Blood by data Automated count Hematocri 42.0 - % Normal No May 20 t [Volume 52.0 informati 2016 1:18 on in PM Fraction] source of Blood data Hemoglobi 14.1 - g/dL Normal No May 20 n 18.0 informati 2016 1:18 [Mass/vol on in PM ume] in source Blood data Lymphocyt 0.7 - 4.5 K/mm3 Normal No May 20 es informati 2017 1:18 [#/volume on in PM ] in source Unspecifi data ed specimen by Automated count Lymphocyt 10 - 50 % Normal No May 20 es informati 2016 1:18 [#/volume on in PM ] in source Unspecifi data ed specimen by Automated count Erythrocy 27 - 31.2 pg Normal No May 20 te mean informati 2016 1:18 corpuscul on in PM ar source hemoglobi data n [Entitic mass] Erythrocy 31.8 - g/dl Normal No May 20 te mean 35.4 informati 2017 1:18 corpuscul on in PM ar source hemoglobi data n concentra tion [Mass/vol ume] by Automated count Erythrocy 82.2 - fl Normal No May 20 te mean 97.8 informati 2016 1:18 corpuscul on in PM ar volume source [Entitic data volume] by Automated count Monocytes 0.1 - 1.0 K/mm3 Normal No May 20 informati 2017 1:18 [#/volume on in PM ] in source Blood by data Automated count Monocytes 1.7 - 9.3 % Normal No May 20 /100 informati 2017 1:18 leukocyte on in PM s in source Blood by data Automated count Platelet 7.4 - fl Normal No May 20 mean 10.4 informati 2017 1:18 volume on in PM [Entitic source volume] data in Blood by Automated count Platelets 142 - 424 K/mm3 Normal No May 20 informati 2016 1:18 [#/volume on in PM ] in source Blood data Erythrocy 4.6 - 6.2 M/mm3 Normal No May 20 mya informati 2017 1:18 [#/volume on in PM ] in source Amniotic data fluid Erythrocy 11.5 - % Normal No May 20 te 17.5 informati 2016 1:18 distribut on in PM ion width source [Entitic data volume] by Automated count Leukocyte 4.8 - K/MM3 Normal No May 20 s 10.8 informati 2016 1:18 [#/volume on in PM ] in source Blood data
--- OUTSIDE RECORDS SUMMARY | 2017-07-04 02:43 | External Medical Summary Rpt | CCD ---
Author Author , MARY ELLEN HYDE Address Unknown Phone [email or web address] Immunization Name Date Rout CVX Reac Dose [...]
== END 2017-06-29 14:50 | disposition home or self-care (01) ==
LOC: UTC 14:29
DX: R11.2 Nausea with vomiting, unspecified (principal)

== ENCOUNTER 2017-08-23 14:13 | Emergency (ER) | payer MEDICAID ==
[~2017-08-23] VITALS: Ht 185.4 cm; Wt 156.5 kg
[~2017-08-23 14:13] MED LIST changes: +ZOFRAN4 MG PO
[2017-08-23] MEDS ORDERED: MUCINEX1200 MG PO (14:53)
[2017-08-23] MEDS ORDERED: CLARITIN 10MG T10 MG PO (14:53)
[2017-08-23] MEDS ORDERED: BROMFED DM COU118 ML PO (14:53)
--- NOTE | 2017-08-23 14:53 | Urgent Treatment Center Report ---
History of Present Issue Date/Time Seen by Provider 08/23/17 9283 Visit Reason Pt arrived:Walked Presenting Problem:CONGESTION BEGAN THIS AM Location if Accident: Onset of symptoms date/time:/ or onset unknown for:MEDICAL HX UNKNOWN Have you (or family members/close friends) recently traveled outside the [place]? N If Yes, where/when: Have you had exposure to infectious disease within the past month? TB? Other? Specify: Patient state that he has been having sinus pain and congestion since this morning State that he has been blowing clear drainage from his nose State that several family members being sick and he wanted to come in and get checked out ALLERGIES Coded Allergies: No Known Allergies (01/07/16) Home Medications Active Scripts ONDANSETRON HCL (Zofran 4MG Tab) 4 MG PO Q8HP PRN NAUSEA AND VOMITING 3 Days Prov: 06/29/17 History Medical History General CAD? No Angina: No NM: No Hypertension? No Hyperlipidemia? No CHF? No DVT? No PE? No COPD? No Asthma? Yes Anemia? No GERD? No Gastric ulcers? No GI Bleed? No Hernia? No Thyroid Problems? No Hypothyroidism? No CVA? No Seizures? No Diabetes? No Insulin Dependent: No Insulin Pump: No Home FSBS? No Renal Insuffiency? No UTI? No Stones? No BPH? No GB Disease: No Nephritic Syndrome? No Asplenia? No Hepatitis? No Sickle Cell Disease? No Arthritis? No Migraines? No Cataracts? No Glaucoma? No MRSA? No HIV? No TB? No Anxiety? No Depression? No Cancer? No Immunization HX DT/Tetanus 5-10 YRS Surgical Hx Previous Surgery?Y ROOT CANAL RIGHT KNEE Social History Smoking Hx Smoker: Never Smoker Tobacco: No Alcohol Alcohol: No Review of Systems All Other Systems Reviewed and Negative ENT nose congestion. Respiratory cough Physical Exam Vital Signs Vital Signs Date Time Temp Pulse Resp B/P Pulse O2 O2 Flow FiO2 Ox Delivery Rate 08/23 1430 99.3 90 20 124/96 98 General Appearance normal appearance, WD/WN, no apparent distress Ear, Nose, Throat nasal congestion, clear drainage noted Respiratory Status Yes: trachea midline, chest symmetrical, non tender chest. No: respiratory distress. Cardiovascular normal exam, regular rate/rhythm, no peripheral edema Neurologic alert, normal exam, oriented x 3 Medical Decision Making LABS/Meds/Orders Pt receiving controlled substance in ED? No Departure Departure Time of Disposition 1451 Disposition DC Home or Self Care(routine) Clinical Impression Primary Impression: Allergic rhinitis Qualifiers: Chronicity: unspecified Allergic rhinitis trigger: unspecified Allergic rhinitis seasonality: seasonal Qualified Code: J30.2 - Other seasonal allergic rhinitis Condition STABLE Patient Instructions Cough, DI for Nasal Congestion Additional Instructions * Monitor Temp. Tylenol and/or Ibuprofen as needed. ER if fever is no less than 101 despite alternating Tylenol and Ibuprofen * Encourage fluids, water, Gatorade, powerade, pedialyte if infant/toddler/or child * Warm salt water gargles for throat irritation *Warm fluids *Sore throat lozenges *Sleep elevated *humidifier or vaporizer Lots of rest Increase fluids, water, Gatorade, powerade *Flonase 2 sprays each nostril daily but may take 2-3 days to notice improvement with it *Bromfed may cause drowsiness. Know how it effect you or your child. Before driving, caring for small children or sending your child to school Follow up IMMEDIATELY for new or worsening of symptoms OR no noticeable improvement over the next 48-72 hours. 911 immediately for any life threatening symptoms such as chest pain or difficulty breathing Discharge Counseling Counseled pt/family regarding diagnosis, medications/RX, home care Prescriptions Current Visit Scripts D-METHORPHAN HB/P-EPD HCL/BPM (Bromfed Dm Cough Syrup) 10 ML PO Q4HP PRN cough #120 SYR Loratadine (Claritin 10MG) 10 MG PO DAILY #30 TAB Guaifenesin (Mucinex) 1,200 MG PO BID #20 TER at 9615
[2017-08-23 14:58] VITALS: BP 124/96
--- OUTSIDE RECORDS SUMMARY | 2017-08-23 14:58 | External Medical Summary Rpt | CCD ---
Author Author , MARY ELLEN HYDE Address Unknown Phone [email or web address] Care Team Providers Care Casket Assembler Name Role Phone PETE NAIR MD, Unavailable Unavailable PETE NAIR MD [facility] Unavailable Unavailable MARIA LUZ, [facility] MARIA LUZ Mascorro MD, Unavailable Unavailable Kirsten Brown MD, Unavailable Unavailable Yohan Brown MD [facility] Unavailable Unavailable [id number] # [id number], [facility] [id number] # 0393 [facility] # Unavailable Unavailable [id number], [facility] # [id number] Purpose Continuity of Care Document - 11-22-2009 through 2016 Problems Code Diagnosis DOS Provider Status 842.00 842.00 07-08-2013 [place] SPR[facility] OF [facility] WRIST NOS Hospital 314.01 314.01 ATTN 05-24-2013 [place] DEFICIT W [facility] HYPERACT Hospital 493.90 [phone] 05-24-2013 [place] ASTHMA, [facility] UNSPECIFIED Hospital 724.2 724.2 05-24-2013 [facility] 815.00 815.00 FX 03-26-2013 [place] METACARPAL [facility] NOS-CLOSED Hospital E849.8 E849.8 03-23-2013 [place] ACCIDENT IN [facility] E917.4 E917.4 STAT 03-23-2013 [place] OB W/O SUB [facility] FALL [facility] H81.10 BENIGN PAROXYSMAL VERTIGO, UNSPECIFIED EAR J06.9 [...] # UL E 10 05 91 DE 64 12 12 [address] Ac XT 72 -0 -[address] 31 EP ti RO 00 8- 8- 00 SI 03 HE ve AM 13 20 20 DE NS P- 21 10 10 AM 0 PH DO PH AR N ET MA R AM CY IN OF 10 CY MG NT HI TA AN B A VY 59 12 12 [address] Ac VA 41 -0 -[address] 31 EP ti NS 70 8- 8- 00 SI 02 HE ve E 10 20 20 DE NS 70 71 10 10 0 PH DO MG AR N MA R CA CY PS UL OF E CY NT HI AN A DE 00 11 11 0 30 [...] 59 09 09 30 30 RI 84 DC Ac VA 41 -0 -0 .0 TE 88 LL ti NS 70 7- 7- 00 67 ER ve E 10 20 20 AI 70 71 10 10 D CA 0 PH RO MG AR L MA J CA CY PS UL 03 E 93 8 # 03 93 65 09 09 0 30 30 WA 70 DC Ac AN 16 -0 -0 .0 L- [...] 20 RT 5 N 15 10 10 DC 60 9 PH CH 0 AR AE [...] 20 20 DE LI 30 10 10 DC N 5 PH CH 50 AR AE [...] NAIR MD (ER) 3 18:50 3 19:26 [facility] YARITZA NAIR MD (ER) 3 11:08 3 13:20 [facility] YARITZA Escobar MD (ER) 3 18:29 3 18:34 [facility] YARITZA Mascorro MD (ER) 3 15:30 3 16:06 [facility] YARITZA Brown MD (ER) 3 23:17 3 00:13 [facility]
--- OUTSIDE RECORDS SUMMARY | 2017-08-23 14:58 | External Medical Summary Rpt | CCD ---
Author Author , MARY ELLEN HYDE Address Unknown Phone mary Care Team Providers Care Biofuels Product Manager Name Role Phone PETE NAIR MD, Unavailable Unavailable PETE NAIR MD [facility] Unavailable Unavailable MARIA LUZ, [facility] MARIA LUZ Mascorro MD, Unavailable Unavailable Kirsten Brown MD, Unavailable Unavailable Yohan Brown MD [facility] Unavailable Unavailable [id number] # [phone], [facility] [id number] # 0393 [facility] # Unavailable Unavailable [id number], [facility] # [id number] Purpose Continuity of Care Document - 11-22-2009 through 2016 Problems Code Diagnosis DOS Provider Status 842.00 842.00 07-08-2013 [place] SPRAIN OF [facility] WRIST NOS Hospital 314.01 314.01 ATTN 05-24-2013 [place] DEFICIT W [facility] HYPERACT Hospital 493.90 [phone] 05-24-2013 [place] ASTHMA, [facility] UNSPECIFIED Hospital 724.2 724.2 05-24-2013 [facility] 815.00 815.00 FX 03-26-2013 [place] METACARPAL [facility] NOS-CLOSED Hospital E849.8 E849.8 03-23-2013 [place] ACCIDENT IN [facility] E917.4 E917.4 STAT 03-23-2013 [place] OB W/O SUB [facility] FALL [facility] H81.10 BENIGN PAROXYSMAL VERTIGO, UNSPECIFIED EAR [...] 59 09 09 30 30 RI 84 MO Ac VA 41 -0 -0 .0 TE 88 LL ti NS 70 7- 7- 00 67 ER ve E 10 20 20 AI 70 71 10 10 D CA 0 PH RO MG AR L MA J CA CY PS UL 03 E 93 8 # 03 93 65 09 09 0 30 30 WA 70 MO Ac AN 16 -0 -0 .0 L- [...] 20 RT 5 N 15 10 10 MO 60 9 PH CH 0 AR AE [...] 20 20 DE LI 30 10 10 MO N 5 PH CH 50 AR AE [...] NAIR MD (ER) 3 18:50 3 19:26 [facility] YARITZA NAIR MD (ER) 3 11:08 3 13:20 [facility] YARITZA Escobar MD (ER) 3 18:29 3 18:34 [facility] YARITZA Mascorro MD (ER) 3 15:30 3 16:06 [facility] YARITZA Brown MD (ER) 3 23:17 3 00:13 [facility]
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
--- OUTSIDE RECORDS SUMMARY | 2017-08-23 15:03 | External Medical Summary Rpt ---
Author Author MARY ELLEN Zara, MARY ELLEN Production Organization MARY ELLEN Production [...] % Normal No Sep 5 ls/100 12.0 inform2016 4:15 leukocyte on in PM s in [...] 50 % Normal No Sep 5 es inform2016 4:15 [#/volume on in PM ] [...] - 1.0 K/mm3 Normal No Sep 5 ati 2016 4:15 [#/volume on in PM ] in source Blood by data Automated count Monocytes 1.7 - 9.3 % Normal No Sep 5 /100 informati 2017 4:15 leukocyte on in PM s in source Blood by data Automated count Platelet 7.4 - fl Normal No Sep 5 mean 10.4 informati 2016 4:15 volume on in PM [Entitic source volume] data in Blood by Automated count Platelets 142 - 424 K/mm3 Normal No Sep 5 informati 2016 [...] No May 20 te mean 35.4 informati 2016 1:18 corpuscul on in PM [...] 424 K/mm3 Normal No May 20 informati 2017 [...]
--- OUTSIDE RECORDS SUMMARY | 2017-08-23 15:03 | External Medical Summary Rpt | CCD ---
Author Author , MARY ELLEN Organization MARY ELLEN Address Unknown Phone [email or web address] Immunization Name Date Rout CVX Reac Dose Comm Prov Is Faci e tion ent ider Refu lity Give sed n Corey 11-1 2 999 Hist H149 No H149 o-OP 6-19 oric V 99 al Info rmat ion - Sour ce Unsp ecif ied MMR 11-1 3 999 Hist H149 No H149 6-19 oric 99 al Info rmat ion - Sour ce Unsp ecif ied DTaP 11-1 107 999 Hist H149 No [...]
--- OUTSIDE RECORDS SUMMARY | 2017-08-23 15:03 | External Medical Summary Rpt | CCD ---
Author Author , MARY ELLEN Organization MARY ELLEN Address Unknown Phone [email or web address] Immunization Name Date Rout CVX Reac Dose [...]
[2017-09-08] MEDS ORDERED: RANITIDINE HCL150 MG PO (22:15)
== END 2017-08-23 14:58 | disposition home or self-care (01) ==
LOC: UTC 14:13
DX: J30.2 Other seasonal allergic rhinitis (principal); J45.909 Unspecified asthma, uncomplicated